=== PATIENT | female | born 1995 | race Native Hawaiian/Other Pacific Islander ===

== ENCOUNTER 2018-10-23 09:48 | Emergency (ER) | payer OTHER ==
[2018-10-23 09:59] VITALS: BMI 18.1
[2018-10-23] MEDS ORDERED: Sodium Chloride 0.9% 1,000 ML IV STA (10:38)
--- NOTE | 2018-10-23 10:39 | ED PDOC ---
HPI: General Adult Time Seen by Provider: 10/23/18 10:38 Chief Complaint (Nursing): GI Problem Chief Complaint (Provider): abdominal pain/vomiting History Per: Patient (23 y/o female here for abdominal pain associated with vomiting. Denies any fever/diarrhea. Notes she was drinking etoh heavily and attributes symptoms to this. No h/o abd surgeries.) Past Medical History Reviewed: Historical Data, Nursing Documentation, Vital Signs Vital Signs: Last Vital Signs Temp 98.5 F 10/23/18 10:01 Pulse 98 H 10/23/18 10:01 Resp 18 10/23/18 10:01 BP 123/69 10/23/18 10:01 Pulse Ox 100 10/23/18 10:01 - Family History Family History: States: No Known Family Hx - Home Medications Home Medications: Ambulatory Orders Medication Instructions Recorded Famotidine [Pepcid] 20 mg PO BID #10 tab 10/23/18 Ondansetron ODT [Zofran ODT] 4 mg PO Q8 PRN #1 odt 10/23/18 - Allergies Allergies/Adverse Reactions: Allergies Allergy/AdvReac Type Severity Reaction Status Date / Time No Known Allergies Allergy Verified 10/23/18 10:09 Review of Systems ROS Statement: Except As Marked, All Systems Reviewed And Found Negative Physical Exam - Reviewed Nursing Documentation Reviewed: Yes Vital Signs Reviewed: Yes - Physical Exam Appears: Positive for: Well, Non-toxic, No Acute Distress Head Exam: Positive for: ATRAUMATIC, NORMAL INSPECTION, NORMOCEPHALIC Skin: Positive for: Normal Color, Warm, DRY Eye Exam: Positive for: EOMI, Normal appearance, PERRL ENT: Positive for: Normal ENT Inspection Neck: Positive for: Normal, Painless ROM Cardiovascular/Chest: Positive for: Regular Rate, Rhythm Respiratory: Positive for: CNT, Normal Breath Sounds Gastrointestinal/Abdominal: Positive for: Normal Exam, Soft, Tenderness (epigastric tenderness) Back: Positive for: Normal Inspection Extremity: Positive for: Normal ROM Neurologic/Psych: Positive for: Alert, Oriented - Laboratory Results Result Diagrams: 10/23/18 10:43 10/23/18 10:43 - ECG O2 Sat by Pulse Oximetry: 100 - Progress ED Course And Treament: Pepcid 20 mg iv x 1 dose Zofran 4 mg iv x 1 dose NS 1 liter wide open reglan 10 mg iv x 1 dose Disposition - Clinical Impression Clinical Impression: Alcoholic gastritis - Patient ED Disposition Is Patient to be Admitted: No - Disposition Referrals: [facility] [Outside] Disposition: Routine/Home Disposition Time: 14:35 Condition: FAIR Prescriptions: Famotidine [Pepcid] 20 mg PO BID #10 tab Ondansetron ODT [Zofran ODT] 4 mg PO Q8 PRN #1 odt PRN Reason: Nausea/Vomiting Instructions: Gastritis (DC)
[2018-10-23 10:48] LABS: BASO # 0.1 K/uL (0.0-0.2); BASO % 0.7 % (0.0-2.0); HEMOGLOBIN 12.4 g/dL (12.0-16.0); LYMPH # 1.2 K/uL (1.0-4.3); LYMPH % 16.6 % (20.0-40.0); MEAN CELL VOLUME 87.8 fl (81.0-99.0); MEAN CORPUSCULAR HEMOGLOBIN 29.1 pg (27.0-31.0); MEAN CORPUSCULAR HGB CONC 33.2 g/dL (33.0-37.0); MEAN PLATELET VOLUME 6.9 fl (7.2-11.7); MONO # 0.2 K/uL (0.0-0.8); MONO % 2.5 % (0.0-10.0); NEUT # 5.7 K/uL (1.8-7.0); NEUT % 80.2 % (50.0-75.0); RBC 4.27 Mil/uL (3.80-5.20); RED CELL DISTRIBUTION WIDTH 13.1 % (11.5-14.5); WHITE BLOOD COUNT 7.1 K/uL (4.8-10.8)
[2018-10-23 10:59] LABS: ALB/GLOB RATIO 1.3 (1.0-2.1); ALT/SGPT 21 U/L (9-52); AST/SGOT 31 U/L (14-36); BLOOD UREA NITROGEN 9 mg/dl (7-17); CALCIUM 9.5 mg/dL (8.4-10.2); GFR NON-AFRICAN AMERICAN > 60; LIPASE 45 U/L (23-300)
[2018-10-23 14:47] VITALS: BP 112/80; PULSE 89; RESP 16; TEMP 98.9; O2SAT 96
== END 2018-10-23 14:48 | disposition home or self-care (01) ==
LOC: H.ER 09:48
DX: K29.20 Alcoholic gastritis without bleeding (principal)
CPT/HCPCS: 80053; 81025; 83690; 85025; 96361; 96374; 96375; 99284; J2405; J2765; J7030